=== PATIENT | female | born 1980 | race Caucasian/White ===

== ENCOUNTER 2021-01-29 13:32 | Emergency (ER) | payer OTHER, SELFPAY ==
--- OUTSIDE RECORDS SUMMARY | 2021-01-29 13:53 | XMS REPORT | Continuity of Care Document ---
:1980 Author Organization [facility] t Address [address] [place] [address] Care Team Providers Name Role Phone Pool, Resident Attending Clinician Unavailable Problems This patient has no known problems. Allergies, Adverse Reactions, Alerts This patient has no known allergies or adverse reactions. Medications This patient has no known medications. Procedures This patient has no known procedures. Encounters Start End Encounter Admission Attending Care Care Encounter Source Date/Time Date/Time Type Type Clinicians Facility Department ID 2019-08-20 2019-08-20 Office [facility] [id number] 14:41:34 16:29:04 Visit [facility] [id number] [facility] [id number] Results This patient has no known results.
[2021-01-29] MEDS ORDERED: ONDANSETRON 4 MG/2 ML VIAL ONE (17:12)
[2021-01-29] MEDS ORDERED: NA CHLORIDE 0.9% 1,000 ML ONE ×2 (17:12→19:45)
[2021-01-29 17:29] LABS: Absolute Lymphocytes (CBC) 0.7 K/uL (0.7-4.9); Basophils % 0.5 % (0-1.3); Hematocrit 42.7 % (36.0-45.0); Lymphocytes % 23.3 % (15.3-44.8); MPV 8.9 fL (7.6-11.3); RBC Red Blood Cell Count 4.69 M/uL (3.86-4.86)
[2021-01-29 17:33] LABS: Protime INR 1.15
[2021-01-29 17:56] LABS: ALT/SGPT 282 U/L (12-78); Albumin 3.7 g/dL (3.4-5.0); Alkaline Phosphatase 71 U/L (45-117); BUN Blood Urea Nitrogen 15 mg/dL (7-18); Bicarbonate 22 mmol/L (21-32); Bilirubin Direct 0.1 mg/dL (0-0.2); Bilirubin Total 0.4 mg/dL (0.2-1.0); C-Reactive Protein 8.06 mg/L (<3.00); Ferritin 702.5 ng/mL (8-388); Glucose Level 88 mg/dL (74-106); Lipase 136 U/L (73-393); Protein, Total 8.5 g/dL (6.4-8.2); Sodium Level 134 mmol/L (136-145); Troponin (Emerg Dept Use Only) < 0.02 ng/mL (0.0-0.045)
[2021-01-29 17:57] LABS: AST/SGOT 240 U/L (15-37); Potassium 3.7 mmol/L (3.5-5.1)
--- NOTE | 2021-01-29 18:56 | RAD REPORT ---
EXAM DESCRIPTION: CT - Chest For Pe Angio - 01/29/2021 6:50 pm CLINICAL HISTORY: SOB COMPARISON: Chest Single View dated 01/29/2021No comparison CT TECHNIQUE: Dynamically enhanced 3 mm thick images of the chest were obtained during administration o f approximately 150mL Isovue 370 IV contrast. Coronal and oblique MIP reconstruction images were gene rated and reviewed. Exam utilizes a protocol to evaluate the pulmonary arterial tree. All CT scans are performed using dose optimization technique as appropriate and may include automated exposure control or mA/KV adjustment according to patient size. FINDINGS: No pulmonary emboli are identified. The aorta as imaged shows no acute or suspicious finding. No pericardial thickening or effusion. Scattered ground-glass opacification present in the lung dominique. This is more pronounced in the mid l eft upper lobe. Pattern is nonspecific. COVID-19 pneumonia is certainly a possibility given the [facility] clinical environment. Non COVID viral pneumonia is are also possible. Pattern is not a typical kerline terial pneumonia pattern though correlation can be made with lab findings and physical exam findings. No pleural effusion or pleural thickening. No mediastinal or hilar suspicious masses. No chest wall masses or abnormal axillary lymphadenopathy. IMPRESSION: No pulmonary emboli identified. Bilateral ground-glass opacities are present more pronounced in the mid left upper lobe. In the [facility] clinical environment, mild COVID-19would be a consideration. Non viral COVID-19 pneumonia is possi ble. Other atypical pneumonia is are possible. Alveolar pulmonary edema not suspected.
[2021-01-29] MEDS ORDERED: ACETAMINOPHEN 500 MG TAB ONE (19:44)
[2021-01-29] MEDS ORDERED: ALBUTEROL INHALER 60 PUFF/8 GM IH ONE (19:45)
--- NOTE | 2021-01-29 19:47 | RAD REPORT ---
EXAM DESCRIPTION: RAD - Chest Single View - 01/29/2021 7:01 pm CLINICAL HISTORY: SOB COMPARISON: October 2016 TECHNIQUE: AP portable chest image was obtained 01/29/2021 7:01 pm . FINDINGS: No dense mass or consolidation. Linear atelectasis present in the left mid lung field. Int erstitial and hazy alveolar opacities are present. A mild viral pneumonia can give this presentation. This can be seen in both COVID-19 and non COVID viral pneumonia is. No consolidation typical for kerline terial pneumonia. Trachea is midline. Significant failure or volume overload are not suspected. Heart and vasculature a re normal. No measurable pleural effusion and no pneumothorax. No acute bony abnormality seen. No acu te aortic findings suspected. IMPRESSION: Scattered interstitial and alveolar opacities are present. A mild COVID-19 pneumonia wou ld be a possible etiology and needs correlation with testing and clinical presentation.
--- NOTE | 2021-01-29 20:54 | EDPHYS ---
Physician Documentation [facility] Name: Gemma Gomez Age: 40 yrs Sex: Female : 1980 Arrival Date: 01/29/2021 Time: 13:34 Bed 4 Private MD: ED Physician Donnie Bentley HPI: 01/29 18:46 This 40 yrs old Female presents to ER via EMS with complaints of COVID+, pm1 Weakness. 18:46 The patient or guardian reports flu symptoms. Onset: The symptoms/episode pm1 began/occurred 1 week(s) ago. Severity of symptoms: in the emergency department the symptoms are actually worse. Modifying factors: The symptoms are alleviated by nothing, the symptoms are aggravated by nothing. Associated signs and symptoms: Pertinent positives: fever, Generalized weakness, body aches, rash to legs and back, SOB, vomiting and diarrhea, Pertinent negatives: chest pain. The patient has not recently seen a physician, [facility] 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 Flu vaccine is up to date. - Social history:: Smoking status: Patient denies any tobacco usage or history of. ROS: 18:46 Eyes: Negative for injury, pain, redness, and discharge, ENT: Negative for injury, pm1 pain, and discharge, Neck: Negative for injury, pain, and swelling, Cardiovascular: Negative for chest pain, palpitations, and edema. 18:46 Back: Negative for injury and pain, MS/Extremity: Negative for injury and deformity, Skin: Negative for injury, rash, and discoloration, Neuro: Negative for headache, weakness, numbness, tingling, and seizure. 18:46 Constitutional: Positive for body aches, fever, poor PO intake. 18:46 Respiratory: Positive for cough, shortness of breath. 18:46 Abdomen/GI: Positive for nausea, vomiting, and diarrhea, Negative for abdominal pain. 18:46 All other systems are negative. Exam: 18:46 Constitutional: This is a well developed, well nourished patient who is awake, alert, pm1 and in no acute distress. Head/Face: Normocephalic, atraumatic. 18:46 Back: No spinal tenderness. No costovertebral tenderness. Full range of motion. Skin: Warm, dry with normal turgor. Normal color with no rashes, no lesions, and no evidence of cellulitis. MS/ Extremity: Pulses equal, no cyanosis. Neurovascular intact. Full, normal range of motion. 18:46 Eyes: Exam is negative for acute changes, Extraocular movements: no acute changes, Conjunctiva: normal, no injection. 18:46 ENT: Exam is negative for acute changes, Mouth: Lips: normal, Oral mucosa: normal, pink and intact, moist. 18:46 Neck: Exam negative for acute changes, ROM/movement: is normal, is supple, without pain, no range of motions limitations, no meningismus, no nuchal rigidity. 18:46 Cardiovascular: Exam negative for acute changes, Rate: tachycardic, Rhythm: regular, Pulses: no pulse deficits are appreciated. 18:46 Respiratory: Exam negative for acute changes, respiratory distress, shortness of breath, Breath sounds: are clear throughout. 18:46 Abdomen/GI: Inspection: obese Palpation: abdomen is soft and non-tender, in all quadrants. 18:46 Neuro: Exam negative for acute changes, Orientation: is normal, Mentation: is normal, Motor: is normal, moves all fours. Vital Signs: 14:19 BP 107 / 74; Pulse 112; Resp 18 S; Temp 98.9(TE); Pulse Ox 97% on R/A; Weight 113.4 kg ca1 (R); Height 5 ft. 5 in. (165.10 cm) (R); Pain 10/10; 17:26 BP 105 / 70; Pulse 100; Resp 19 S; Pulse Ox 97% on R/A; jd3 18:20 BP 114 / 67; Pulse 96; Resp 18 S; Pulse Ox 97% on R/A; jd3 19:33 BP 116 / 70; Pulse 97; Resp 15; Pulse Ox 97% ; Pain 3/10; bs2 14:19 Body Mass Index 41.60 (113.40 kg, 165.10 cm) ca1 MDM: 16:34 Patient medically screened. [facility] 20:52 Data reviewed: vital signs. Data interpreted: Pulse oximetry: on room air is 97 %. pm1 Interpretation: normal. Counseling: I had a detailed discussion with the patient and/or guardian regarding: the historical points, exam findings, and any diagnostic results supporting the discharge/admit diagnosis, lab results, radiology results, the need for outpatient follow up, to return to the emergency department if symptoms worsen or persist or if there are any questions or concerns that arise at home. 21:00 ED course: PMPaware reviewed. pm01/29 16:46 Order name: BMP pm01/29 16:46 Order name: Blood Culture Adult (2) pm01/29 16:46 Order name: C-Reactive Protein pm01/29 16:46 Order name: CBC with Diff pm01/29 16:46 Order name: D-Dimer; Complete Time: 17:38 pm01/29 16:46 Order name: Ferritin; Complete Time: 18:07 pm01/29 16:46 Order name: Flu; Complete Time: 18:07 pm01/29 16:46 Order name: LFT's; Complete Time: 18:07 pm01/29 16:46 Order name: Lactate; Complete Time: 18:07 pm01/29 16:46 Order name: Lipase; Complete Time: 18:07 pm01/29 16:46 Order name: PT-INR; Complete Time: 17:38 pm01/29 16:46 Order name: Procalcitonin; Complete Time: 18:07 pm01/29 16:46 Order name: Ptt, Activated; Complete Time: 17:38 pm01/29 16:46 Order name: Strep; Complete Time: 18:07 pm01/29 16:46 Order name: Troponin (emerg Dept Use Only); Complete Time: 18:07 pm01/29 16:46 Order name: CXR XRAY; Complete Time: 20:02 pm01/29 16:46 Order name: EKG; Complete Time: 16:47 pm01/29 16:46 Order name: Cardiac monitoring; Complete Time: 16:47 pm01/29 16:46 Order name: Basic Metabolic Panel; Complete Time: 18:07 EDMS 01/29 16:46 Order name: Blood Culture EDMS 01/29 16:46 Order name: C-Reactive Protein; Complete Time: 18:07 EDMS 01/29 16:46 Order name: CBC with Automated Diff; Complete Time: 17:38 [facility] 01/29 17:39 Order name: CT Chest For PE Angio; Complete Time: 18:58 pm1 01/29 17:41 Order name: Throat Culture [facility] 01/29 16:46 Order name: Droplet/Contact Precautions; Complete Time: 16:47 pm1 01/29 16:46 Order name: EKG - Nurse/Tech; Complete Time: 17:08 pm1 01/29 16:46 Order name: IV Start; Complete Time: 17:08 pm1 01/29 16:46 Order name: Labs collected and sent; Complete Time: 17:08 pm1 01/29 16:46 Order name: O2 Per Protocol; Complete Time: 16:47 pm1 01/29 16:46 Order name: O2 Sat Monitoring; Complete Time: 16:47 pm1 Administered Medications: 17:10 Drug: NS 0.9% 1000 ml Route: IV; Rate: 1000 ml; Site: left wrist; jd3 17:10 Drug: Zofran (Ondansetron) 4 mg Route: IVP; Site: left wrist; jd3 19:19 Follow up: Response: No adverse reaction bs2 19:30 Drug: NS 0.9% 1000 ml Route: IV; Rate: 1000 ml; Site: left hand; bs2 20:20 Follow up: IV Status: Completed infusion; IV Intake: 1000ml bs2 19:30 Drug: Tylenol 1000 mg Route: PO; bs2 21:14 Follow up: Response: No adverse reaction bs2 19:31 Not Given (order changee): Albuterol 2.5 mg Inhalation once bs2 19:31 Drug: Albuterol HFA Inhaler 2 puffs Route: Inhalation; bs2 Disposition: 01/30 13:22 Co-signature as Attending Physician, Donnie Bentley MD I agree with the assessment and paulo plan of care. Disposition Summary: 01/29/21 20:54 Discharge Ordered Location: Home pm1 Problem: new pm1 Symptoms: have improved pm1 Condition: Stable pm1 Diagnosis - Pneumonia due to SARS-associated coronavirus pm1 - Vomiting pm1 - Diarrhea, unspecified pm1 Followup: pm1 - With: Emergency Department - When: As needed - Reason: Worsening of condition Followup: pm1 - With: Private Physician - When: 2 - 3 days - Reason: Recheck today's complaints, Continuance of care, Re-evaluation by your physician Discharge Instructions: - Discharge Summary Sheet pm1 - Food Choices to Help Relieve Diarrhea, Adult pm1 - Diarrhea, Adult pm1 - Nausea and Vomiting, Adult pm1 - COVID-19 pm1 Forms: - Medication Reconciliation Form pm1 - Thank You Letter pm1 - Antibiotic Education pm1 - Prescription Opioid Use pm1 Prescriptions: - ondansetron 4 mg Oral tablet,disintegrating - place 1 tablet by SUBLINGUAL route every 8 hours As needed; 15 tablet; Refills: pm1 0, Product Selection Permitted - Guaifenesin AC 10-100 mg/5 mL Oral Liquid - take 10 milliliters by ORAL route every 4 hours As needed; 240 milliliter; pm1 Refills: 0, Product Selection Permitted - Proventil HFA 90 mcg/actuation Inhalation HFA aerosol inhaler - inhale 2 puff by INHALATION route every 4-6 hours As needed; 1 Inhaler; pm1 Refills: 0, Product Selection Permitted Signatures: Dispatcher [employer] EDDonnie Peck MD MD cha Marinas, Patrick, [facility] pm1 Chan Yates RN RN jd3 Kallie Velez RN RN ca1 Cori Anton bs2
--- NOTE | 2021-01-29 20:54 | ER ---
Nurse's Notes [facility] Name: Gemma Gomez Age: 40 yrs Sex: Female : 1980 Arrival Date: 01/29/2021 Time: 13:34 Bed 4 Private MD: Diagnosis: Pneumonia due to SARS-associated coronavirus;Vomiting;Diarrhea, unspecified Presentation: 01/29 14:19 Chief complaint: EMS states: Covid+ 01/22/2021. Reports generalized weakness, sore all ca1 over, rash on legs and back, SOB, vomiting. Coronavirus screen: Client reports previous positive COVID test result. Date of collection: January 22, 2021. Ebola Screen: Patient negative for fever greater than or equal to 101.5 degrees Fahrenheit, and additional compatible Ebola Virus Disease symptoms Patient denies exposure to infectious person. Patient denies travel to an Ebola-affected area in the 21 days before illness onset. No symptoms or risks identified at this time. Initial Sepsis Screen: Does the patient meet any 2 criteria? No. Patient's initial sepsis screen is negative. Does the patient have a suspected source of infection? No. Patient's initial sepsis screen is negative. Risk Assessment: Do you want to hurt yourself or someone else? Patient reports no desire to harm self or others. Onset of symptoms was January 22, 2021. 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 Flu vaccine is up to date. - Social history:: Smoking status: Patient denies any tobacco usage or history of. Screenin:26 Abuse screen: Denies threats or abuse. Nutritional screening: No deficits noted. jd3 Tuberculosis screening: No symptoms or risk factors identified. Fall Risk Ambulatory Aid- None/Bed Rest/Nurse Assist (0 pts). Gait- Normal/Bed Rest/Wheelchair (0 pts) Mental Status- Oriented to own ability (0 pts). Total Hodgson Fall Scale indicates No Risk (0-24 pts). Assessment: 16:30 General: Appears in no apparent distress. comfortable, Behavior is calm, cooperative, jd3 appropriate for age. Pain: Denies pain. Neuro: Level of Consciousness is awake, alert, obeys commands, Oriented to person, place, time, situation. Cardiovascular: Capillary refill < 3 seconds Patient's skin is warm and dry. Rhythm is sinus tachycardia. Respiratory: Reports shortness of breath on exertion cough that is persistent Airway is patent Respiratory effort is even, unlabored, Respiratory pattern is regular, symmetrical. GI: Reports nausea. : No signs and/or symptoms were reported regarding the genitourinary system. EENT: No signs and/or symptoms were reported regarding the EENT system. Derm: Skin is intact, Skin is dry, Skin is normal, Skin temperature is warm. Musculoskeletal: Circulation, motion, and sensation intact. Range of motion: intact in all extremities. 17:26 Reassessment: Patient appears in no apparent distress at this time. No changes from jd3 previously documented assessment. Patient and/or family updated on plan of care and expected duration. Pain level reassessed. Patient is alert, oriented x 3, equal unlabored respirations, skin warm/dry/pink. 18:20 Reassessment: Patient appears in no apparent distress at this time. No changes from jd3 previously documented assessment. Patient and/or family updated on plan of care and expected duration. Pain level reassessed. Patient is alert, oriented x 3, equal unlabored respirations, skin warm/dry/pink. Vital Signs: 14:19 BP 107 / 74; Pulse 112; Resp 18 S; Temp 98.9(TE); Pulse Ox 97% on R/A; Weight 113.4 kg ca1 (R); Height 5 ft. 5 in. (165.10 cm) (R); Pain 10/10; 17:26 BP 105 / 70; Pulse 100; Resp 19 S; Pulse Ox 97% on R/A; jd3 18:20 BP 114 / 67; Pulse 96; Resp 18 S; Pulse Ox 97% on R/A; jd3 19:33 BP 116 / 70; Pulse 97; Resp 15; Pulse Ox 97% ; Pain 3/10; bs2 14:19 Body Mass Index 41.60 (113.40 kg, 165.10 cm) ca1 ED Course: 13:34 Patient arrived in ED. mr 14:21 Triage completed. ca1 14:21 Arm band placed on right wrist. ca1 16:29 Chan Yates, RAZ is Primary Nurse. jd3 16:33 Diogenes Arias NP is PHCP. pm1 16:33 Donnie Bentley MD is Attending Physician. pm1 16:58 First set of blood cultures drawn by me. Inserted saline lock: 20 gauge in left wrist, dh3 using aseptic technique. Blood collected. 17:02 Initial lab(s) drawn, by me, sent to lab. Second set of blood cultures drawn by me. dh3 17:27 Patient has correct armband on for positive identification. Bed in low position. Call j light in reach. Side rails up X 1. teletypesetter monitor on. Pulse ox on. NIBP on. 17:39 Notified Nurse Practitioner and/or Physician Clerical Car Checker of a critical lab result(s), ca1 D-Dimer [id number] Notified primary nurse of. 18:49 CT Chest For PE Angio In Process Unspecified. EDMS 19:02 CXR XRAY In Process Unspecified. EDMS 19:32 CBC with Diff Sent. bs2 19:32 C-Reactive Protein Sent. bs2 19:32 Blood Culture Adult (2) Sent. bs2 19:32 BMP Sent. bs2 19:33 Blood Culture Sent. bs2 21:13 No provider procedures requiring assistance completed. IV discontinued, intact, bs2 bleeding controlled, No redness/swelling at site. Pressure dressing applied. Administered Medications: 17:10 Drug: NS 0.9% 1000 ml Route: IV; Rate: 1000 ml; Site: left wrist; jd3 17:10 Drug: Zofran (Ondansetron) 4 mg Route: IVP; Site: left wrist; jd3 19:19 Follow up: Response: No adverse reaction bs2 19:30 Drug: NS 0.9% 1000 ml Route: IV; Rate: 1000 ml; Site: left hand; bs2 20:20 Follow up: IV Status: Completed infusion; IV Intake: 1000ml bs2 19:30 Drug: Tylenol 1000 mg Route: PO; bs2 21:14 Follow up: Response: No adverse reaction bs2 19:31 Not Given (order changee): Albuterol 2.5 mg Inhalation once bs2 19:31 Drug: Albuterol HFA Inhaler 2 puffs Route: Inhalation; bs2 Intake: 20:20 IV: 1000ml; Total: 1000ml. bs2 Outcome: 20:54 Discharge ordered by . pm1 21:13 Discharged to home ambulatory. bs2 21:13 Condition: improved 21:13 Discharge instructions given to patient, family, Instructed on discharge instructions, follow up and referral plans. medication usage, Demonstrated understanding of instructions, follow-up care, medications, Prescriptions given X 3. 21:14 Patient left the ED. bs2 Signatures: Dispatcher [employer] EDTX Lilia Reyna JuanaDiogenes, MOVING VAN DRIVER MOVING VAN DRIVER pm1 Della Navas 3 Chan Yates RN RN jd3 Kallie Velez RN RN ca1 Cori Anton bs2
[2021-01-29 21:22] VITALS: TEMP 98.9; O2SAT 97
[2021-01-29 21:27] VITALS: BP 116/70
--- NOTE | 2021-01-30 10:30 | EKG ---
Test Date: 2021-01-29 Test Time: 16:59:28 Diesel Truck Technician: RAJWINDER MEASUREMENT RESULTS: Intervals: Rate: 109 LA: 140 QRSD: 108 QT: 350 QTc: 471 Dema: P: 19 LA: 140 QRS: 212 T: 34 INTERPRETIVE STATEMENTS: Sinus tachycardia Possible Left atrial enlargement Incomplete right bundle branch block Possible Right ventricular hypertrophy Inferior infarct, age undetermined Anterolateral infarct, age undetermined Abnormal ECG Compared to ECG 12/27/2015 10:40:35 Incomplete right bundle-branch block now present Sinus rhythm no longer present Sinus arrhythmia no longer present Left-axis deviation no longer present Myocardial infarct finding still present Electronically Signed On 01-30-21 10:28:44 CDT by Chauncey Patel
== END 2021-01-29 21:14 | disposition home or self-care (01) ==
LOC: ER 13:32
DX: U07.1 COVID-19 (principal); J12.82 Pneumonia due to coronavirus disease 2019; R11.10 Vomiting, unspecified; R19.7 Diarrhea, unspecified; Z88.0 Allergy status to penicillin; Z88.8 Allergy status to other drugs, medicaments and biological substances
CPT/HCPCS: 36415; 71045; 71275; 80048; 80076; 82728; 83605; 83690; 84145; 84484; 85025; 85379; 85610; 85730; 86140; 87040; 87070; 87081; 87804; 93005; 96361; 96374; 99285; J2405; J7030; Q9967